=== PATIENT | female | born 1945 | race Caucasian/White ===

== ENCOUNTER → 2020-03-15 | Outpatient (CLI) | payer MEDICARE, OTHER ==
--- NOTE | 2020-03-16 12:25 | 2DMMODE ---
[place] [address] 2 D/M-MODE ECHOCARDIOGRAM Name: DANII FULLER Room: [facility]#: [id number] Admission: 03/15/20 Attend Phys: Pancho Watters, Discharge: Date of : 45 Date of Service: 03/16/20 1225 Report #: [id number] THIS REPORT FOR: cc: Ronak Strickland Robin L. FNP Liston, Michael J. MD [facility] ~ APPROVED REPORT Study performed: 03/15/2020 13:53:43 EXAM: Comprehensive 2D, Doppler, and color-flow Echocardiogram Patient Location: Out-Patient BSA: 1.78 HR: 80 bpm BP: 120/80 mmHg Other Information Study Quality: Fair Indications CAD 2D Dimensions IVSd: 10.45 (7-11mm) LVOT Diam: 19.52 (18-24mm) LVDd: 43.69 mm PWd: 9.29 (7-11mm) Ascending Ao: 25.87 (22-36mm) LVDs: 26.07 (25-40mm) Aortic Root: 21.84 mm Volumes Left Atrial Volume (Systole) LA ESV Index: 11.50 mL/m2 Aortic Valve AoV Peak Devaughn.: 0.80 m/s AO Peak Gr.: 2.56 mmHg LVOT Max P.76 mmHg AO Mean Gr.: 1.54 mmHg LVOT Mean P.42 mmHg LVOT Max V: 0.83 m/s AO V2 VTI: 15.54 cm LVOT Mean V: 0.56 m/s DARIN (VTI): 3.55 cm2 LVOT V1 VTI: 18.44 cm Mitral Valve E/A Ratio: 0.89 [place] [address] 2 D/M-MODE ECHOCARDIOGRAM Name: DANII FULLER Room: [facility]#: [id number] Admission: 03/15/20 Attend Phys: Pancho Watters, Discharge: Date of : 45 Date of Service: 03/16/20 1225 Report #: [id number] MV Decel. Time: 248.63 ms MV E Max Devaughn.: 0.66 m/s MV PHT: 72.10 ms MVA (PHT): 3.05 cm2 TDI E/Lateral E': 9.43 E/Medial E': 7.33 Medial E' Devaughn.: 0.09 m/s Lateral E' Devaughn.: 0.07 m/s Pulmonary Valve PV Peak Devaughn.: 0.84 m/s PV Peak Gr.: 2.79 mmHg Left Ventricle The left ventricle is normal size. There is normal LV segmental wall motion. There is normal left ventricular wall thickness. Left ventricular systolic function is normal. LVEF is 60-65%. Grade I - abnormal relaxation pattern. Right Ventricle The right ventricle is normal size. The right ventricular systolic function is normal. Atria The left atrium size is normal. The right atrium size is normal. Aortic Valve The aortic valve is normal in structure. No aortic regurgitation is present. There is no aortic valvular stenosis. Mitral Valve The mitral valve is normal in structure. There is no mitral valve regurgitation noted. No evidence of mitral valve stenosis. Tricuspid Valve The tricuspid valve is normal in structure. There is no tricuspid valve regurgitation noted. Pulmonic Valve Pulmonic valve is not well visualized. There is no pulmonic valvular regurgitation. Great Vessels The aortic root is normal in size. IVC [place] [address] 2 D/M-MODE ECHOCARDIOGRAM Name: HUGOCHRISTIANODANII PURDY SUPRIYA Room: [facility]#: [id number] Admission: 03/15/20 Attend Phys: Pancho Watters, Discharge: Date of : 45 Date of Service: 03/16/20 1225 Report #: [id number] Pericardium There is no pericardial effusion. <Conclusion> Left ventricular systolic function is normal. The left ventricular ejection fraction is within the normal range. The left ventricle is normal size. There is normal left ventricular wall thickness. Left ventricular systolic function is normal. LVEF is 60-65%. Grade I - abnormal relaxation pattern. IVC is not well visualized. <ELECTRONICALLY SIGNED> By: Pancho Watters MD, FACC 03/16/20 1225 1225 1225 Pancho Watters MD, FACC /INF
== END ==
LOC: M.CRD 13:49
PROVIDERS: ATTEND Internal Medicine Cardiovascular Disease
DX: I48.0 Paroxysmal atrial fibrillation (principal)

== ENCOUNTER 2021-01-31 11:09 | Emergency (ER) | payer MEDICARE, OTHER ==
[~2021-01-31] VITALS: Ht 167.6 cm; Wt 72.6 kg
[2021-01-31 14:28] VITALS: BP 153/77
== END 2021-01-31 14:30 | disposition home or self-care (01) ==
LOC: M.ERS 11:09
DX: M54.42 Lumbago with sciatica, left side (principal); M51.26 Other intervertebral disc displacement, lumbar region; I48.91 Unspecified atrial fibrillation; Z95.5 Presence of coronary angioplasty implant and graft; Z85.038 Personal history of other malignant neoplasm of large intestine

== ENCOUNTER 2021-02-02 13:15 | Emergency (ER) | payer MEDICARE, OTHER ==
[~2021-02-02] VITALS: Ht 167.6 cm; Wt 72.6 kg
[2021-02-02 13:31] LABS: URINE BILIRUBIN NEGATIVE (Negative); URINE BLOOD TRACE (Negative); URINE CLARITY CLEAR; URINE COLOR YELLOW; URINE GLUCOSE-RANDOM NEGATIVE (Negative); URINE KETONES NEGATIVE (Negative); URINE LEUKOCYTES-REFLEX 1+ (Negative); URINE NITRITE-REFLEX NEGATIVE (Negative); URINE PROTEIN NEGATIVE (Negative); URINE UROBILINOGEN 0.2 E.U./dl (0.2-1.0)
[2021-02-02 13:38] LABS: SQUAMOUS 0-3 Few /LPF (0-3)
[2021-02-02 13:39] LABS: BACTERIA-REFLEX 1-9 Few /HPF (None Seen); CASTS None Seen /LPF (None Seen); CRYSTALS None Seen /LPF (None Seen); URINE RBC 0-2 Rare /HPF (0-2); URINE WBC-REFLEX 0-5 Rare /HPF (0-5)
[2021-02-02] MEDS ORDERED: RAYOS5 MG PO (13:41)
[2021-02-02] MEDS ORDERED: FLEXERIL PO (13:56)
[2021-02-02 14:31] VITALS: BP 188/88
== END 2021-02-02 14:32 | disposition home or self-care (01) ==
LOC: M.ERS 13:15
PROVIDERS: Nurse Practitioner Psychiatric/Mental Health
DX: M54.5 Low back pain (principal); I48.91 Unspecified atrial fibrillation; Z88.1 Allergy status to other antibiotic agents; Z79.899 Other long term (current) drug therapy

== ENCOUNTER 2021-02-09 19:31 | Emergency (ER) | payer MEDICARE, OTHER ==
[~2021-02-09] VITALS: Ht 167.6 cm; Wt 81.7 kg
[~2021-02-09 19:31] MED LIST: FLEXERIL PO; RAYOS5 MG PO
[2021-02-09] MEDS ORDERED: TRAMADOL 50 MG50 MG PO (19:54)
[2021-02-09] MEDS ORDERED: SEN-O-TAB8.6 MG PO (19:55)
[2021-02-09] MEDS ORDERED: ONDANSETRON ODT4 MG PO (19:55)
[2021-02-09 20:27] LABS: ABSOLUTE BASOPHILS 0.1 thou/uL (0.0-0.2); ABSOLUTE EOSINOPHILS 0.1 thou/uL (0.0-0.7); ABSOLUTE LYMPHOCYTES 1.7 thou/uL (0.8-5.3); ABSOLUTE NEUTROPHILS 8.1 thou/uL (1.6-8.1); BASOPHILS 0.6 %; EOSINOPHILS 0.7 %; HEMATOCRIT 39.3 % (37.0-47.0); HEMOGLOBIN 13.4 gm/dL (12.0-15.0); LYMPHOCYTES 15.6 %; MCV 91.4 fL (80.0-100.0); MONOCYTES 8.8 %; MPV 6.7 fl. (7.2-11.1); NUCLEATED RBCS 0 /100WBC; PLATELET COUNT* 270 thou/uL (150-400); POLYS 74.3 %; RDW-CV 14.5 % (10.5-14.5); WBC 10.9 thou/uL (4.0-11.0)
[2021-02-09 20:34] LABS: CALCIUM 8.3 mg/dL (8.5-10.1); CREATININE 0.8 mg/dL (0.6-1.3); POTASSIUM 3.7 mmol/L (3.5-5.1)
[2021-02-09 20:38] LABS: ALBUMIN 3.4 g/dL (3.4-5.0); TOTAL BILIRUBIN 0.1 mg/dL (<0.1-1.0); TOTAL PROTEIN 6.6 g/dL (6.4-8.2)
[2021-02-09 21:49] LABS: URINE BILIRUBIN NEGATIVE (Negative); URINE BLOOD NEGATIVE (Negative); URINE CLARITY CLEAR; URINE COLOR YELLOW; URINE GLUCOSE-RANDOM NEGATIVE (Negative); URINE KETONES NEGATIVE (Negative); URINE LEUKOCYTES-REFLEX NEGATIVE (Negative); URINE NITRITE-REFLEX NEGATIVE (Negative); URINE PROTEIN NEGATIVE (Negative); URINE SPECIFIC GRAVITY <= 1.005 (1.005-1.030); URINE UROBILINOGEN 0.2 E.U./dl (0.2-1.0)
[2021-02-09] MEDS ORDERED: CITRATE OF MAG296 M1 PO (22:33)
[2021-02-09 23:00] VITALS: BP 142/92
== END 2021-02-09 23:00 | disposition home or self-care (01) ==
LOC: M.ERS 19:31
PROVIDERS: Nurse Practitioner Family
DX: K59.00 Constipation, unspecified (principal); Z88.5 Allergy status to narcotic agent; Z88.1 Allergy status to other antibiotic agents; Z95.1 Presence of aortocoronary bypass graft; Z85.038 Personal history of other malignant neoplasm of large intestine

== ENCOUNTER 2021-04-08 16:08 | Emergency (ER) | payer MEDICARE, OTHER ==
[~2021-04-08] VITALS: Ht 167.6 cm; Wt 72.6 kg
[~2021-04-08 16:08] MED LIST changes: +CITRATE OF MAG296 M1 PO; +ONDANSETRON ODT4 MG PO; +SEN-O-TAB8.6 MG PO; +TRAMADOL 50 MG50 MG PO
[2021-04-08 17:00] LABS: ABSOLUTE BASOPHILS 0.1 thou/uL (0.0-0.2); ABSOLUTE EOSINOPHILS 0.1 thou/uL (0.0-0.7); ABSOLUTE LYMPHOCYTES 1.6 thou/uL (0.8-5.3); ABSOLUTE MONOCYTES 0.5 thou/uL (0.0-1.2); ABSOLUTE NEUTROPHILS 7.3 thou/uL (1.6-8.1); BASOPHILS 0.8 %; EOSINOPHILS 0.5 %; HEMATOCRIT 43.3 % (37.0-47.0); HEMOGLOBIN 14.6 gm/dL (12.0-15.0); LYMPHOCYTES 16.4 %; MCH 30.3 pg (26.0-34.0); MCHC 33.7 g/dL (28.0-37.0); MCV 90.1 fL (80.0-100.0); MONOCYTES 5.7 %; NUCLEATED RBCS 0 /100WBC; PLATELET COUNT* 322 thou/uL (150-400); POLYS 76.6 %; RBC 4.81 mil/uL (4.20-5.00); RDW-CV 14.5 % (10.5-14.5); WBC 9.6 thou/uL (4.0-11.0)
[2021-04-08 17:12] LABS: CALCIUM 8.8 mg/dL (8.5-10.1); CREATININE 0.7 mg/dL (0.6-1.3); POTASSIUM 3.8 mmol/L (3.5-5.1)
[2021-04-08 17:23] LABS: TOTAL BILIRUBIN 0.4 mg/dL (<0.1-1.0); TOTAL PROTEIN 7.5 g/dL (6.4-8.2)
--- NOTE | 2021-04-08 17:47 | EKG ---
[place] [address] ELECTROCARDIOGRAM REPORT Name: DANII FULLER Room: [facility]#: [id number] Admission: 04/08/21 Attend Phys: Discharge: Date of : 45 Date of Service: 04/08/21 1631 Report #: [id number] THIS REPORT FOR: //name// [facility] ED Test Date: 2021-04-08 Test Time: 16:31:55 Pat Name: DANII FULLER Department: Room: Gender: Upsetter: : 1945 Requested By: Kenroy Bloom Order Number: [id number] MD: John Berg Measurements Intervals [place] Rate: 98 P: 64 AL: 177 QRS: 64 QRSD: 116 T: 26 QT: 352 QTc: 450 Interpretive Statements Sinus rhythm Consider right atrial enlargement Nonspecific intraventricular conduction delay Baseline wander in lead(s) V2,V3,V4,V5,V6 No previous ECG available for comparison Electronically Signed On 04-08-2021 17:47:17 CDT by John Berg [email or web address] <ELECTRONICALLY SIGNED> By: John Berg MD, [facility] 04/08/21 1747 1631 1631 John Berg MD, [facility] /EPI
[2021-04-08 19:51] LABS: URINE BILIRUBIN NEGATIVE (Negative); URINE BLOOD NEGATIVE (Negative); URINE CLARITY CLEAR; URINE COLOR YELLOW; URINE GLUCOSE-RANDOM NEGATIVE (Negative); URINE KETONES NEGATIVE (Negative); URINE LEUKOCYTES-REFLEX NEGATIVE (Negative); URINE NITRITE-REFLEX NEGATIVE (Negative); URINE PROTEIN NEGATIVE (Negative); URINE UROBILINOGEN 0.2 E.U./dl (0.2-1.0)
[2021-04-08] MEDS ORDERED: TYLENOL EXTRA500 MG PO (20:05)
[2021-04-08 20:17] VITALS: BP 158/75
== END 2021-04-08 20:18 | disposition home or self-care (01) ==
LOC: M.ERS 16:08
PROVIDERS: Physician Assistant
DX: I10 Essential (primary) hypertension (principal); I48.91 Unspecified atrial fibrillation; Z85.038 Personal history of other malignant neoplasm of large intestine; Z88.1 Allergy status to other antibiotic agents; Z88.5 Allergy status to narcotic agent

== ENCOUNTER 2021-04-22 23:19 | Inpatient (IN) | payer MEDICARE, OTHER ==
[~2021-04-22] VITALS: Ht 167.6 cm; Wt 72.6 kg
[~2021-04-22 23:19] MED LIST changes: +TYLENOL EXTRA500 MG PO
[2021-04-22 23:29] VITALS: BP 145/65
[2021-04-22] MEDS ORDERED: TOPROL XL25 MG PO (23:31)
[2021-04-23 00:07] LABS: ABSOLUTE LYMPHOCYTES 0.8 thou/uL (0.8-5.3); ABSOLUTE MONOCYTES 0.3 thou/uL (0.0-1.2); ABSOLUTE NEUTROPHILS 2.4 thou/uL (1.6-8.1); BASOPHILS 0.3 %; HEMATOCRIT 37.5 % (37.0-47.0); HEMOGLOBIN 12.9 gm/dL (12.0-15.0); LYMPHOCYTES 21.8 %; MCH 30.3 pg (26.0-34.0); MCHC 34.3 g/dL (28.0-37.0); MCV 88.3 fL (80.0-100.0); MONOCYTES 9.3 %; MPV 7.5 fl. (7.2-11.1); NUCLEATED RBCS 0 /100WBC; PLATELET COUNT* 195 thou/uL (150-400); POLYS 68.6 %; RBC 4.25 mil/uL (4.20-5.00); RDW-CV 14.6 % (10.5-14.5); WBC 3.5 thou/uL (4.0-11.0)
[2021-04-23 00:09] LABS: CALCIUM 7.9 mg/dL (8.5-10.1); CREATININE 0.8 mg/dL (0.6-1.3); POTASSIUM 3.7 mmol/L (3.5-5.1)
[2021-04-23 00:19] LABS: ALBUMIN 3.3 g/dL (3.4-5.0); TOTAL BILIRUBIN 0.5 mg/dL (<0.1-1.0); TOTAL PROTEIN 6.5 g/dL (6.4-8.2)
[2021-04-23 00:39] LABS: URINE BILIRUBIN NEGATIVE (Negative); URINE BLOOD NEGATIVE (Negative); URINE CLARITY CLEAR; URINE COLOR YELLOW; URINE GLUCOSE-RANDOM NEGATIVE (Negative); URINE KETONES NEGATIVE (Negative); URINE LEUKOCYTES-REFLEX NEGATIVE (Negative); URINE NITRITE-REFLEX NEGATIVE (Negative); URINE PROTEIN NEGATIVE (Negative); URINE SPECIFIC GRAVITY <= 1.005 (1.005-1.030); URINE UROBILINOGEN 0.2 E.U./dl (0.2-1.0)
[2021-04-23 06:10] VITALS: BP 163/85
[2021-04-23 06:14] VITALS: BP 129/62
[2021-04-23] MEDS ORDERED: AZITHROMYCIN500 MG PO (06:25)
--- NOTE | 2021-04-23 07:15 | NUR ---
CHANGE OF SHIFT BEDSIDE REPORT GIVEN PATIENT SEEN AT BEDSIDE IN BED ASLEEP ASSUMED PATIENT CARE
[2021-04-23 08:00] VITALS: BP 148/74
[2021-04-23 10:21] LABS: ABSOLUTE LYMPHOCYTES 0.4 thou/uL (0.8-5.3); ABSOLUTE MONOCYTES 0.1 thou/uL (0.0-1.2); ABSOLUTE NEUTROPHILS 2.3 thou/uL (1.6-8.1); BASOPHILS 0.1 %; HEMATOCRIT 38.6 % (37.0-47.0); HEMOGLOBIN 12.8 gm/dL (12.0-15.0); LYMPHOCYTES 14.1 %; MCH 29.9 pg (26.0-34.0); MCHC 33.1 g/dL (28.0-37.0); MCV 90.4 fL (80.0-100.0); MONOCYTES 3.1 %; MPV 7.4 fl. (7.2-11.1); NUCLEATED RBCS 0 /100WBC; PLATELET COUNT* 199 thou/uL (150-400); POLYS 82.7 %; RBC 4.27 mil/uL (4.20-5.00); RDW-CV 14.8 % (10.5-14.5); WBC 2.8 thou/uL (4.0-11.0)
[2021-04-23 10:58] LABS: CALCIUM 8.1 mg/dL (8.5-10.1); CREATININE 0.6 mg/dL (0.6-1.3); POTASSIUM 3.3 mmol/L (3.5-5.1)
--- NOTE | 2021-04-23 11:10 | EKG ---
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 : 1945 Requested By: Nancy Smith Order Number: [id number] MD: Jose Barber Measurements Intervals [place] Rate: 103 P: 54 AL: 177 QRS: 56 QRSD: 88 T: 24 QT: 328 QTc: 430 Interpretive Statements Sinus tachycardia Compared to ECG 04/08/2021 16:31:55 Sinus rate has increased Intraventricular conduction delay no longer present Electronically Signed On 04-23-2021 11:10:27 CDT by Jose Barber [email or web address] <ELECTRONICALLY SIGNED> By: Jose Barber MD, [facility] 04/23/21 1110 0000 0000 Jose Barber MD, [facility] /EPI
[2021-04-23 16:00] VITALS: BP 144/71
[2021-04-23 20:00] VITALS: BP 139/77
[2021-04-24 00:32] VITALS: BP 135/72
[2021-04-24 04:08] LABS: HEMATOCRIT 34.9 % (37.0-47.0); HEMOGLOBIN 11.8 gm/dL (12.0-15.0); MCV 88.3 fL (80.0-100.0); MPV 7.2 fl. (7.2-11.1); RBC 3.95 mil/uL (4.20-5.00); RDW-CV 14.9 % (10.5-14.5); WBC 4.1 thou/uL (4.0-11.0)
[2021-04-24 04:16] VITALS: BP 134/78
[2021-04-24 04:22] LABS: ALBUMIN 2.9 g/dL (3.4-5.0); CALCIUM 8.1 mg/dL (8.5-10.1); CREATININE 0.6 mg/dL (0.6-1.3); POTASSIUM 3.8 mmol/L (3.5-5.1); TOTAL BILIRUBIN 0.2 mg/dL (<0.1-1.0); TOTAL PROTEIN 5.8 g/dL (6.4-8.2)
--- NOTE | 2021-04-24 04:51 | NUR ---
ASSUMED PT CARE AT APPROX 1930. PT IS AWAKE AND ORIENTED X4. 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 PT HAS CHRONIC LEFT LEG PAIN BUT DENIES THE NEED FOR AIN MEDS AT THIS TIME. PT IS KEPT ON 2L OF O2/NC, PT GETS SHORT OF AIR WITH ACTIVITY. NO OTHER CHANGES THIS SHIFT. CALL LIGHT WITHIN REACH. HOURLY ROUNDING DONE FOR PT SAFETY.
[2021-04-24 08:30] VITALS: BP 158/78
[2021-04-24 12:00] VITALS: BP 144/75
[2021-04-24 18:36] VITALS: BP 164/71
--- NOTE | 2021-04-24 18:59 | NUR ---
Pt up to chair for about an hour today between breakfast and lunch. States difficult to change positions in recliner due to pain to LLE. Medicated for c/o pain to LLE; see MEL. VSCelestina. Reports she may get dischargted late tomorrow if still doing well. On 2L O2, sats mid 90s. Will continue to monitor.
[2021-04-24 20:05] VITALS: BP 155/74
--- NOTE | 2021-04-24 22:18 | NUR ---
AT 2029, LEVOPHED TURNED DOWN TO 1 MCG/MIN. AND NOW IT IS BEING TURNED OFF
[2021-04-25] VITALS: BP 159/83
--- NOTE | 2021-04-25 00:44 | NUR ---
ASSUMED CARE OF PT AT 1900. PT IS ALERT AND ORIENTED. VSS. PERRLA. NO COMPLAINTS OF PAIN. PT WAS ON 2 LITERS NASAL CANNULA. I REDUCED O2 TO ROOM AIR AND PT TOLERATED WELL UNTIL SHE FELL ASLEEP AND HAD TO BE PUT BACK ON 1 LITER TO KEEP SPO2 GREATER THAN 90. PT IS IN SINUS RYTHM ON THE TELEMETRY. PT IS RESTING COMFORTABLY IN BED. RESPIRATIONS ARE EVEN AND NONLABORED. WILL CONTINUE TO MONITOR PT.
[2021-04-25 04:00] VITALS: BP 150/74
[2021-04-25 08:13] VITALS: BP 165/78
[2021-04-25 09:11] LABS: CALCIUM 7.9 mg/dL (8.5-10.1); CREATININE 0.6 mg/dL (0.6-1.3); POTASSIUM 3.5 mmol/L (3.5-5.1)
[2021-04-25] MEDS ORDERED: VENTOLIN HFA 1818 GM INH (10:25)
[2021-04-25] MEDS ORDERED: DEXAMETHASONE 22 M1 PO (10:25)
[2021-04-25 13:24] VITALS: BP 165/78
--- NOTE | 2021-04-25 14:41 | NUR ---
Reviewed discharge teaching with patient; verbalized understanding. Telemetry, O2 sat monitor, and IV dc'd. Dc'd from unit per WC.
--- NOTE | 2021-04-26 12:02 | 2DMMODE ---
[place] [address] 2 D/M-MODE ECHOCARDIOGRAM Name: DANII FULLER SUPRIYA Room: [address] IN .R.#: [id number] Admission: 04/23/21 Attend Phys: Jak Minor Discharge: 04/25/21 Date of : 45 Date of Service: 04/25/21 1302 Report #: [id number] THIS REPORT FOR: cc: Ronak Strickland Robin L. FNP Blick, David R. MD [facility] ~ APPROVED REPORT Study performed: 04/25/2021 10:33:04 EXAM: Comprehensive 2D, Doppler, and color-flow Echocardiogram Patient Location: In-Patient Room #: [facility] Status: routine BSA: 1.82 HR: 87 bpm BP: 165/78 mmHg Rhythm: NSR Other Information Study Quality: Good Indications Elevated Troponin 2D Dimensions IVSd: 9.76 (7-11mm) LVOT Diam: 20.71 (18-24mm) LVDd: 41.65 mm PWd: 8.84 (7-11mm) Ascending Ao: 28.97 (22-36mm) LVDs: 23.10 (25-40mm) Aortic Root: 30.52 mm Volumes Left Atrial Volume (Systole) LA ESV Index: 17.90 mL/m2 Aortic Valve AoV Peak Devaughn.: 1.43 m/s AO Peak Gr.: 8.18 mmHg LVOT Max P.04 mmHg AO Mean Gr.: 4.39 mmHg LVOT Mean P.18 mmHg LVOT Max V: 1.23 m/s AO V2 VTI: 26.97 cm LVOT Mean V: 0.84 m/s DARIN (VTI): 2.92 cm2 LVOT V1 VTI: 23.[address] [place]: 2.60 m/[place]2 [place] [address] 2 D/M-MODE ECHOCARDIOGRAM Name: DANII FULLER Room: [address]#: [id number] Admission: 04/23/21 Attend Phys: Jak Minor Discharge: 04/25/21 Date of : 45 Date of Service: 04/25/21 1302 Report #: [id number] AI PHT: 429.87 ms Mitral Valve E/A Ratio: 0.87 MV Decel. Time: 265.21 ms MV E Max Devaughn.: 0.85 m/s MV PHT: 76.91 ms MVA (PHT): 2.86 cm2 TDI E/Lateral E': 12.14 E/Medial E': 8.50 Medial E' Devaughn.: 0.10 m/s Lateral E' Devaughn.: 0.07 m/s Pulmonary Valve PV Peak Devaughn.: 0.98 m/s PV Peak Gr.: 3.87 mmHg Left Ventricle The left ventricle is normal size. There is normal LV segmental wall motion. There is normal left ventricular wall thickness. Left ventricular systolic function is normal. The left ventricular ejection fraction is within the normal range. LVEF is 65-70%. Grade I - abnormal relaxation pattern. Right Ventricle The right ventricle is normal size. The right ventricular systolic function is normal. Atria The left atrium size is normal. The right atrium size is normal. Aortic Valve The aortic valve is normal in structure. Mild aortic regurgitation. There is no aortic valvular stenosis. Mitral Valve The mitral valve is normal in structure. Trace mitral regurgitation. No evidence of mitral valve stenosis. Tricuspid Valve The tricuspid valve is normal in structure. Unable to assess PA pressure. Trace tricuspid regurgitation. Pulmonic Valve Pulmonic valve is not well visualized. There [place] [address] 2 D/M-MODE ECHOCARDIOGRAM Name: DANII FULLER Room: [address] IN M.R.#: [id number] Admission: 04/23/21 Attend Phys: Jak Minor Discharge: 04/25/21 Date of : 45 Date of Service: 04/25/21 1302 Report #: [id number] regurgitation. Great Vessels The aortic root is normal in size. IVC is not well visualized. Pericardium There is no pericardial effusion. <Conclusion> LVEF is 65-70%. Mild aortic regurgitation. Trace mitral regurgitation. <ELECTRONICALLY SIGNED> By: John Berg MD, FACC 04/25/21 1302 1302 130 John Berg MD, FACC /INF
== END 2021-04-25 14:45 | disposition home or self-care (01) | DRG 177 ==
LOC: M.ERS 23:19 → M.TBA-ER 04-23 05:30 → M.ORTHSURG 04-23 06:08
PROVIDERS: Emergency Medicine; Internal Medicine; ADMIT Internal Medicine; ATTEND Internal Medicine
PROC: XW033E5 Introduction of Remdesivir Anti-infective into Peripheral Vein, Percutaneous Approach, New Technology Group 5 (ICD-10-PCS; principal; 2021-04-23)
DX: U07.1 COVID-19 (principal); J96.01 Acute respiratory failure with hypoxia; J12.82 Pneumonia due to coronavirus disease 2019; E87.1 Hypo-osmolality and hyponatremia; M51.36 Other intervertebral disc degeneration, lumbar region; I25.10 Atherosclerotic heart disease of native coronary artery without angina pectoris; E87.6 Hypokalemia; I48.0 Paroxysmal atrial fibrillation; Z85.038 Personal history of other malignant neoplasm of large intestine; Z95.5 Presence of coronary angioplasty implant and graft; Z88.6 Allergy status to analgesic agent; Z88.1 Allergy status to other antibiotic agents; Z79.899 Other long term (current) drug therapy